=== PATIENT | male | born 1985 | race Caucasian/White ===

== ENCOUNTER → 2018-10-12 | Outpatient (CLI) | payer OTHER ==
--- NOTE | 2018-10-12 12:57 | RADIOLOGY REPORT (SQ) ---
EXAM DESCRIPTION: MRI RT LOWER JOINT WITHOUT COMPLETED DATE/TIME: 10/12/2018 8:07 am REASON FOR STUDY: PAIN IN RIGHT ANKLE (M25.571) M25.571 PAIN IN RIGHT ANKLE AND JOINTS OF RIGHT FO OT COMPARISON: None. TECHNIQUE: Right ankle images acquired and stored on PACS. Multiplanar images include fat sensitive sequences as T1, fluid sensitive sequences as FST2/STIR, cartilage sensitive sequences as FSPD, and g radient echo sequences. LIMITATIONS: None. FINDINGS: BONE MARROW: No alteration of signal to suggest marrow replacement or edema. No occult fra cture. No large osteophytes. EFFUSIONS: No subtalar or tibiotalar effusions. No loose bodies. OSSEOUS ARTICULATIONS: Normal tibiotalar, subtalar, talonavicular and calcaneocuboid joints. TALAR DOME AND TIBIAL PLAFOND: Normal cartilage. No osteochondral defect. ACHILLES TENDON: Intact without partial or full-thickness tear. No adjacent bursal fluid or edema. TIBIALIS ANTERIOR TENDON: Intact without edema at the 1st MT attachment. TIBIALIS POSTERIOR TENDON: Normal morphology and no edema at the navicular attachment. No tendon nichole th fluid. FLEXOR HALLUCIS LONGUS AND FLEXOR DIGITORUM TENDONS: Normal morphology and no tendon sheath fluid. No edema of the os trigonum. PERONEUS LONGUS AND BREVIS TENDON: Normal morphology and no tendon sheath fluid. No subluxation. ATFL, CFL, PTFL: Intact. No thickening or signal alteration. No aravind-ligamentous fluid. DELTOID LIGAMENT: Visualized components intact. TARSAL TUNNEL: No masses. No muscle atrophy. SINUS TARSI: No fluid. No reactive marrow edema or erosions. PLANTAR FASCIA: No signal alteration or tear. ADJACENT SOFT TISSUES: No masses. OTHER: No other significant finding. IMPRESSION: No significant findings. TECHNICAL DOCUMENTATION: JOB ID: [id number] [place]-72 2010 [employer]- All Rights Reserved Reading location - IP/workstation name: [email or web address]
== END ==
LOC: RAD 07:17
PROVIDERS: ATTEND Physician Assistant
DX: M25.571 Pain in right ankle and joints of right foot (principal)

== ENCOUNTER 2019-01-17 14:29 | Emergency (ER) | payer OTHER ==
--- NOTE | 2019-01-17 14:55 | ER Document Report ---
ED Medical Screen (RME) - General Stated Complaint: LOW LEFT ABDOMINAL/GROIN PAIN Time Seen by Provider: 01/17/19 14:49 Primary Care Provider: HARPREET STRONG PA [Primary Care Provider] - Follow up as needed Mode of Arrival: Ambulatory Information source: Patient Notes: 33-year-old male with history of inguinal hernia repair a few years ago presents with complaints to the left inguinal area. He reports he lifted a heavy suitcase the other day other day and has been having pain since that time. Offered Motrin and he declined. Denies pain with void. Denies fever vomiting diarrhea. I have greeted and performed a rapid initial assessment of this patient. A comprehensive ED assessment and evaluation of the patient, analysis of test results and completion of the medical decision making process will be conducted by additional ED providers. Dictation of this chart was performed using voice recognition software; therefore, there may be some unintended grammatical errors. TRAVEL OUTSIDE OF THE [place] IN LAST 30 DAYS: No Physical Exam - Vital signs Vitals: Temp Pulse Resp BP Pulse Ox 98.5 F 69 16 132/85 H 96 01/17/19 14:43 01/17/19 14:43 01/17/19 14:43 01/17/19 14:43 01/17/19 14:43 Course - Vital Signs Vital signs: Temp Pulse Resp BP Pulse Ox 98.5 F 69 16 132/85 H 96 01/17/19 14:43 01/17/19 14:43 01/17/19 14:43 01/17/19 14:43 01/17/19 14:43 Doctor's Discharge - Discharge Referrals: HARPREET STRONG PA [Primary Care Provider] - Follow up as needed
[2019-01-17 15:23] LABS: ABSOLUTE BASOPHILS # (AUTO) 0.1 10^3/uL (0.0-0.2); ABSOLUTE EOSINOPHILS # (AUTO) 0.1 10^3/uL (0.0-0.6); ABSOLUTE LYMPHOCYTES (AUTO) 2.3 10^3/uL (0.5-4.7); ABSOLUTE MONOCYTES (AUTO) 0.9 10^3/uL (0.1-1.4); ABSOLUTE NEUT (AUTO) 5.1 10^3/uL (1.7-8.2); BASOPHILS % (AUTO) 0.8 % (0-2); EOSINOPHILS % (AUTO) 1.3 % (0-6); HEMATOCRIT 41.9 % (37.9-51.0); HEMOGLOBIN 14.9 g/dL (13.5-17.0); LYMPHOCYTES % (AUTO) 27.2 % (13-45); MEAN CORPUSCULAR HEMOGLOBIN 30.4 pg (27.0-33.4); MEAN CORPUSCULAR HGB CONC 35.5 g/dL (32.0-36.0); MEAN CORPUSCULAR VOLUME 86 fl (80-97); MONOCYTES % (AUTO) 10.4 % (3-13); PLATELET COUNT 288 10^3/uL (150-450); RED BLOOD COUNT 4.89 10^6/uL (4.35-5.55); RED CELL DISTRIBUTION WIDTH 12.6 % (11.5-14.0); SEGMENTED NEUTROPHILS % (AUTO) 60.3 % (42-78); TOTAL CELLS COUNTED % (AUTO) 100 %; WHITE BLOOD COUNT 8.5 10^3/uL (4.0-10.5)
--- NOTE | 2019-01-17 15:45 | ER Document Report ---
ED General - General Chief Complaint: Groin Pain Stated Complaint: LOW LEFT ABDOMINAL/GROIN PAIN Time Seen by Provider: 01/17/19 14:49 Primary Care Provider: HARPREET STRONG PA [NO LOCAL MD] - Follow up as needed Mode of Arrival: Ambulatory TRAVEL OUTSIDE OF THE [place] IN LAST 30 DAYS: Yes COUNTRY TRAVELED TO/FROM: [facility] - [facility] Notes: Patient is a 33-year-old male with a history of left inguinal hernia repair 5 years ago who presents complaining of left inguinal pain x1 week after he was trying to put a suitcase in a car. He has not noticed any bulging or redness/swelling in the area. Patient states that pain is relatively constant and does not radiate. He is able to eat and drink without difficulty. He is urinating normally and having normal bowel movements. Denies drug allergies. Patient does not want any medicines or pain at this time. He is not aware of what type of surgery took place if it involves mesh or any patch. Denies any headache, fever, neck pain, URI, sore throat, chest pain, palpitations, syncope, cough, shortness of breath, wheeze, dyspnea, abdominal pain, nausea/vomiting/diarrhea, urinary retention, dysuria, hematuria, back pain, loss of control of bowel or bladder, numbness/tingling, saddle anesthesia, muscle paralysis/weakness, or rash. - Related Data Allergies/Adverse Reactions: No Known Allergies Allergy (Verified 01/17/19 14:58) Past Medical History - General Information source: Patient - Social History Smoking Status: Never Smoker Chew tobacco use (# tins/day): No Frequency of alcohol use: None Drug Abuse: None Family History: Reviewed & Not Pertinent Patient has suicidal ideation: No Patient has homicidal ideation: No Past Surgical History: Reports: Hx Abdominal Surgery - inguinal hernia Review of Systems - Review of Systems -: Yes All other systems reviewed and negative Physical Exam - Vital signs Vitals: Temp Pulse Resp BP Pulse Ox 98.5 F 69 16 132/85 H 96 01/17/19 14:43 01/17/19 14:43 01/17/19 14:43 01/17/19 14:43 01/17/19 14:43 - Notes Notes: PHYSICAL EXAMINATION: GENERAL: Well-appearing, well-nourished and in no acute distress. HEAD: Atraumatic, normocephalic. EYES: Pupils equal round and reactive to light, extraocular movements intact, sclera anicteric, conjunctiva are normal. ENT: EAC clear b/l. TM's intact b/l without erythema, fluid, or perforation. Nares patent and without discharge. oropharynx clear without exudates. No tonsilar hypertrophy or erythema. Moist mucous membranes. No sinus tenderness. NECK: Normal range of motion, supple without lymphadenopathy LUNGS: Breath sounds clear to auscultation bilaterally and equal. No wheezes rales or rhonchi. HEART: Regular rate and rhythm without murmurs, rubs, gallops. ABDOMEN: Soft, nontender, nondistended abdomen. No guarding, no rebound. Normal bowel sounds present. No CVA tenderness bilaterally. : + circumcised. No erythema, rash, lesion, ulceration, necrosis, swelling noted. No urethral discharge. No obvious lymphadenopathy or hernia noted to palpation. Nontender to palpation of the testicles, scrotum, penis. No transverse lie. Primus nerves intact bilaterally. Musculoskeletal: FROM to passive/active. Strength 5+/5. Extremities: No cyanosis, clubbing, or edema b/l. Peripheral pulses 2+. Capillary refill less than 3 seconds. NEUROLOGICAL: Normal speech, normal gait. PSYCH: Normal mood, normal affect. SKIN: Warm, Dry, normal turgor, no rashes or lesions noted. Course - Re-evaluation Re-evalutation: 01/17/19 17:42 Patient is an afebrile, well-hydrated, 33-year-old male who presents with left inguinal pain, unspecified. Vitals are acceptable without significant tachycardia, tachypnea, or hypoxia. PE is otherwise unremarkable. Patient's abdomen is soft nontender. He does have mild tenderness to the left inguinal area without obvious lymphadenopathy or hernia. Urine labs are unremarkable. Ultrasound was also unremarkable to this area. Patient is otherwise nontoxic- appearing and is tolerating p.o. without difficulty. No further work-up warranted. Low suspicion/risk for acute appendicitis, bowel obstruction, acute cholecystitis, perforated diverticulitis, incarcerated hernia, pancreatitis, perforated ulcer, peritonitis, sepsis, testicular torsion, or other systemic emergent condition at this time. Patient is aware that his condition can change from initial presentation and he needs to monitor symptoms closely and seek medical attention if any acute changes. Conservative measures otherwise for symptoms. Recheck with PCM in 2-3 days. Schedule consult with a Urologist. Return to the ED with any worsening/concerning symptoms otherwise as reviewed in discharge. Patient is in agreement. - Vital Signs Vital signs: Temp Pulse Resp BP Pulse Ox 98.5 F 69 16 132/85 H 96 01/17/19 14:43 01/17/19 14:43 01/17/19 14:43 01/17/19 14:43 01/17/19 14:43 - Laboratory Result Diagrams: 01/17/19 15:00 01/17/19 15:00 Laboratory results interpreted by me: 01/17/19 15:00 Glucose 64 L Discharge - Discharge Clinical Impression: Left inguinal pain Condition: Stable Disposition: HOME, SELF-CARE Instructions: Inguinal Strain ([facility]) Additional Instructions: Rest, Ice, Compression Tylenol/ibuprofen as needed Light stretches daily Strength exercises as able Moist heat and massage may help F/u with your PCP in 2-3 days for a recheck Consider consult/schedule appointment with urology/Orthopedics for evaluation. Return to the ED with any worsening symptoms and/or development of fever, headache, chest pain, palpitations, syncope, shortness of breath, trouble breathing, abdominal pain, n/v/d, muscle weakness/paralysis, numbness/tingling, swelling, redness, or other worsening symptoms that are concerning to you. Prescriptions: Ibuprofen [Motrin 800 mg Tablet] 800 mg PO Q8H PRN #15 tab PRN Reason: Forms: Elevated Blood Pressure Referrals: HARPREET STRONG PA [NO LOCAL MD] - Follow up as needed [facility] [Provider Group] - Follow up as needed
--- NOTE | 2019-01-17 15:59 | RADIOLOGY REPORT (SQ) ---
EXAM DESCRIPTION: U/S SCROTUM W/DOPPLER COMPLETED DATE/TIME: 01/17/2019 3:37 pm REASON FOR STUDY: left inguinal pain questionable hernia COMPARISON: None. TECHNIQUE: Static and realtime ruggiero scale imaging of the scrotum and testes. Selected color Doppler and spectral images recorded to document blood flow. LIMITATIONS: None. FINDINGS: RIGHT: TESTICLE: The right testicle measures 3.9 x 3 x 2.2 cm. The echotexture of the testicle is normal. There is no testicular mass and on Doppler there is intact arterial inflow and venous outflow within the testicular stroma. EPIDIDYMIS: The epididymis measures 8 x 8 x 12 mm. There is a cystic structure in the at the epididy mis that measures approximately 2.5 mm. On Doppler there is no evidence of hypervascularity. HYDROCELE OR VARICOCELE: No. HERNIA OR EXTRA-TESTICULAR MASS: No. OTHER: No other finding. LEFT: TESTICLE: The left testicle measures 3.7 x 2.3 x 1.6 cm. The echotexture of the testicle is normal. There is no testicular mass and on Doppler there is intact arterial inflow and venous outflow within the testicular stroma. EPIDIDYMIS: The epididymis measures 6 x 7 x 6 mm. On Doppler there is no evidence of hypervascularit y. HYDROCELE OR VARICOCELE: No. HERNIA OR EXTRA-TESTICULAR MASS: No. OTHER: No hernia sac. IMPRESSION: 1. No testicular mass or evidence of testicular torsion. 2. No epididymitis. 3. No hydrocele or varicocele. 4. No hernia sac in the left inguinal region. TECHNICAL DOCUMENTATION: JOB ID: [id number] [employer]- All Rights Reserved Reading location - IP/workstation name: [email or web address]
[2019-01-17 16:49] LABS: ALBUMIN 4.6 g/dL (3.5-5.0); ALKALINE PHOSPHATASE 58 U/L (38-126); ANION GAP 11 (5-19); ASPARTATE AMINO TRANSFERASE 23 U/L (17-59); BILIRUBIN,DIRECT 0.2 mg/dL (0.0-0.4); BILIRUBIN,TOTAL 0.6 mg/dL (0.2-1.3); BLOOD UREA NITROGEN 15 mg/dL (7-20); CALCIUM 9.9 mg/dL (8.4-10.2); CARBON DIOXIDE 27 mmol/L (22-30); CHLORIDE 104 mmol/L (98-107); POTASSIUM 4.4 mmol/L (3.6-5.0); TOTAL PROTEIN 7.7 g/dL (6.3-8.2)
[2019-01-17 16:53] LABS: GLUCOSE 64 mg/dL (75-110)
[2019-01-17 17:14] LABS: APPEARANCE,URINE CLEAR; BILIRUBIN,URINE NEGATIVE (NEGATIVE); COLOR,URINE YELLOW; GLUCOSE, URINE NEGATIVE (NEGATIVE); KETONES,URINE NEGATIVE (NEGATIVE); LEUKOCYTE ESTERASE,URINE NEGATIVE (NEGATIVE); NITRITE,URINE NEGATIVE (NEGATIVE); PROTEIN,URINE NEGATIVE (NEGATIVE); URINE SPECIFIC GRAVITY 1.008; UROBILINOGEN,URINE NEGATIVE mg/dL (<2.0)
[2019-01-17 17:59] VITALS: BP 135/72
== END 2019-01-17 17:59 | disposition home or self-care (01) ==
LOC: ER 14:29
DX: R10.30 Lower abdominal pain, unspecified (principal)
CPT/HCPCS: 36415; 76870; 80053; 81001; 85025; 93976; 99284

== ENCOUNTER 2019-02-02 16:09 | Emergency (ER) | payer OTHER ==
--- NOTE | 2019-02-02 16:43 | ER Document Report ---
ED Medical Screen (RME) - General Chief Complaint: Neck Problem Stated Complaint: NECK PAIN Time Seen by Provider: 02/02/19 16:19 Notes: Patient is a 33-year-old male who presents to the emergency department with a chief complaint of left lateral neck pain. Patient reports this is been recurrent and intermittent for a few years. 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 Patient denies fever, injury, runny nose, ear pain or headache. Patient reports nothing specific happens to make this neck pain occur but he just feels a pressure underneath his left jaw. Patient denies difficulty breathing or swallowing. TRAVEL OUTSIDE OF THE [place] IN LAST 30 DAYS: Yes COUNTRY TRAVELED TO/FROM: [facility] - Related Data Allergies/Adverse Reactions: No Known Allergies Allergy (Verified 02/02/19 16:24) Past Medical History - Social History Chew tobacco use (# tins/day): No Frequency of alcohol use: None Drug Abuse: None Past Surgical History: Reports: Hx Abdominal Surgery - inguinal hernia Physical Exam - Vital signs Vitals: Temp Pulse Resp BP Pulse Ox 97.9 F 76 16 122/76 98 02/02/19 16:12 02/02/19 16:12 02/02/19 16:12 02/02/19 16:12 02/02/19 16:12 Course - Re-evaluation Re-evalutation: 02/02/19 16:42 I did discuss the patient's symptoms with Dr. Whelan who recommended obtaining a CBC, CMP, TSH and ultrasound of the thyroid and soft tissue the neck. I have greeted and performed a rapid initial assessment of this patient. A comprehensive ED assessment and evaluation of the patient, analysis of test results and completion of the medical decision making process will be conducted by additional ED providers. - Vital Signs Vital signs: Temp Pulse Resp BP Pulse Ox 97.9 F 76 16 122/76 98 02/02/19 16:12 02/02/19 16:12 02/02/19 16:12 02/02/19 16:12 02/02/19 16:12
[2019-02-02 17:13] LABS: ABSOLUTE EOSINOPHILS # (AUTO) 0.1 10^3/uL (0.0-0.6); ABSOLUTE LYMPHOCYTES (AUTO) 1.9 10^3/uL (0.5-4.7); ABSOLUTE MONOCYTES (AUTO) 0.7 10^3/uL (0.1-1.4); ABSOLUTE NEUT (AUTO) 4.8 10^3/uL (1.7-8.2); BASOPHILS % (AUTO) 0.6 % (0-2); EOSINOPHILS % (AUTO) 1.4 % (0-6); HEMATOCRIT 42.4 % (37.9-51.0); HEMOGLOBIN 15.1 g/dL (13.5-17.0); LYMPHOCYTES % (AUTO) 24.9 % (13-45); MEAN CORPUSCULAR HEMOGLOBIN 30.6 pg (27.0-33.4); MEAN CORPUSCULAR HGB CONC 35.7 g/dL (32.0-36.0); MEAN CORPUSCULAR VOLUME 86 fl (80-97); MONOCYTES % (AUTO) 9.3 % (3-13); PLATELET COUNT 268 10^3/uL (150-450); RED BLOOD COUNT 4.95 10^6/uL (4.35-5.55); RED CELL DISTRIBUTION WIDTH 12.6 % (11.5-14.0); SEGMENTED NEUTROPHILS % (AUTO) 63.8 % (42-78); TOTAL CELLS COUNTED % (AUTO) 100 %; WHITE BLOOD COUNT 7.6 10^3/uL (4.0-10.5)
[2019-02-02 17:36] LABS: ALBUMIN 4.4 g/dL (3.5-5.0); ALKALINE PHOSPHATASE 60 U/L (38-126); ANION GAP 11 (5-19); ASPARTATE AMINO TRANSFERASE 20 U/L (17-59); BILIRUBIN,DIRECT 0.1 mg/dL (0.0-0.4); BILIRUBIN,TOTAL 0.5 mg/dL (0.2-1.3); BLOOD UREA NITROGEN 14 mg/dL (7-20); CALCIUM 9.4 mg/dL (8.4-10.2); CARBON DIOXIDE 28 mmol/L (22-30); CHLORIDE 106 mmol/L (98-107); GLUCOSE 103 mg/dL (75-110); POTASSIUM 4.4 mmol/L (3.6-5.0); TOTAL PROTEIN 7.3 g/dL (6.3-8.2)
--- NOTE | 2019-02-02 18:28 | RADIOLOGY REPORT (SQ) ---
EXAM DESCRIPTION: U/S THYROID/SFT TISS HD NECK COMPLETED DATE/TIME: 02/02/2019 5:45 pm REASON FOR STUDY: left neck pressure, enlarged lymph node left COMPARISON: None. TECHNIQUE: Dynamic and static ruggiero-scale images acquired of the thyroid gland. Selected additional c olor/power Doppler images recorded. All images stored to PACS. LIMITATIONS: None. FINDINGS: RIGHT LOBE: Normal size, 4.8 cm. Homogeneous echotexture. No cystic or solid masses. LEFT LOBE: Normal size, 4.3 cm. Homogeneous echotexture. No cystic or solid masses. ISTHMUS: Normal size, 3 mm. Homogeneous echotexture. No cystic or solid masses. OTHER: There is a lymph node adjacent to the parotid gland on the left that measures 18 x 9 x 5 mm. There is a fatty hilum. IMPRESSION: Normal thyroid gland. Left-sided lymph node with a benign appearance. TECHNICAL DOCUMENTATION: JOB ID: [id number] [employer]- All Rights Reserved Reading location - IP/workstation name: [email or web address]
--- NOTE | 2019-02-02 19:32 | ER Document Report ---
HPI - HPI Time Seen by Provider: 02/02/19 16:19 Pain Level: 2 Context: Patient is a 33-year-old male who presents to the emergency department with a chief complaint of left lateral neck pain. Patient reports this is been recurrent and intermittent for a few years. 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 Patient denies fever, injury, runny nose, ear pain or headache. Patient reports nothing specific happens to make this neck pain occur but he just feels a pressure underneath his left jaw. Patient denies difficulty breathing or swallowing. - REPRODUCTIVE Reproductive: DENIES: : Past Medical History - General Information source: Patient - Social History Smoking Status: Never Smoker Chew tobacco use (# tins/day): No Frequency of alcohol use: None Drug Abuse: None Lives with: Family Family History: Reviewed & Not Pertinent Patient has suicidal ideation: No Patient has homicidal ideation: No - Past Medical History Cardiac Medical History: Reports: None Pulmonary Medical History: Reports: None EENT Medical History: Reports: None Neurological Medical History: Reports: None Endocrine Medical History: Reports: None Renal/ Medical History: Reports: None Malignancy Medical History: Reports None GI Medical History: Reports: None Musculoskeletal Medical History: Reports None Skin Medical History: Reports None Psychiatric Medical History: Reports: None Traumatic Medical History: Reports: None Infectious Medical History: Reports: None Past Surgical History: Reports: Hx Abdominal Surgery - inguinal hernia Vertical Provider Document - CONSTITUTIONAL Agree With Documented VS: Yes Exam Limitations: No Limitations General Appearance: No Apparent Distress - INFECTION CONTROL TRAVEL OUTSIDE OF THE [place] IN LAST 30 DAYS: Yes COUNTRY TRAVELED TO/FROM: [facility] - HEENT HEENT: Atraumatic, Normal ENT Exam, Normocephalic, PERRLA - NECK Neck: Normal Inspection Notes: Patient does have a slightly enlarged submandibular palpable lymph node. No surrounding erythema. No difficulty swallowing. - RESPIRATORY Respiratory: Breath Sounds Normal, No Respiratory Distress - CARDIOVASCULAR Cardiovascular: Regular Rate, Regular Rhythm - GI/ABDOMEN Gastrointestinal: Abdomen Soft, Abdomen Non-Tender, Normal Bowel Sounds - MUSCULOSKELETAL/EXTREMETIES Musculoskeletal/Extremeties: FROM - NEURO Level of Consciousness: Awake, Alert, Appropriate - DERM Integumentary: Warm, Dry, No Rash Course - Vital Signs Vital signs: Temp Pulse Resp BP Pulse Ox 97.9 F 76 16 122/76 98 02/02/19 16:12 02/02/19 16:12 02/02/19 16:12 02/02/19 16:12 02/02/19 16:12 - Laboratory Result Diagrams: 02/02/19 16:56 02/02/19 16:56 Laboratory results interpreted by me: 02/02/19 19:30 Laboratory 02/02/19 02/02/19 02/02/19 16:56 16:56 16:56 WBC 7.6 RBC 4.95 Hgb 15.1 Hct 42.4 MCV 86 MCH 30.6 MCHC 35.7 RDW 12.6 Plt Count 268 Lymph % (Auto) 24.9 [place] % (Auto) 9.3 Eos % (Auto) 1.4 Baso % (Auto) 0.6 Absolute Neuts (auto) 4.8 Absolute Lymphs (auto) 1.9 Absolute Monos (auto) 0.7 Absolute Eos (auto) 0.1 Absolute Basos (auto) 0.0 Seg Neutrophils % 63.8 Sodium 144.5 Potassium 4.4 Chloride 106 Carbon Dioxide 28 Anion Gap 11 BUN 14 Creatinine 0.85 Est GFR ( Amer) > 60 Est GFR (MDRD) Non-Af > 60 Glucose 103 Calcium 9.4 Total Bilirubin 0.5 Direct Bilirubin 0.1 Neonat Total Bilirubin Not Reportable Neonat Direct Bilirubin Not Reportable Neonat Indirect Bili Not Reportable AST 20 ALT 14 Alkaline Phosphatase 60 Total Protein 7.3 Albumin 4.4 TSH 1.17 - Diagnostic Test Radiology reviewed: Reports reviewed Radiology results interpreted by me: 02/02/19 19:28 Thyroid Ultrasound 02/02/19 16:38 IMPRESSION: Normal thyroid gland. Left-sided lymph node with a benign appearance. Discharge - Discharge Clinical Impression: Enlarged lymph node in neck Condition: Stable Disposition: HOME, SELF-CARE Additional Instructions: Today you are seen in the emergency department for pressure of the left neck. Your laboratory findings do not reveal an infection, alteration in your electrolytes or kidney function, or alteration in your thyroid function. We did obtain an ultrasound of your neck which showed a normal thyroid and a slightly enlarged lymph node on the left. There are many different reasons for an enlarged lymph node. If you continue to have this enlarged lymph node I would get this checked out by a physician as you may require a biopsy or further testing. Please monitor for signs of worsening to include difficulty breathing, difficulty swallowing, fever or any new or worsening symptoms. Lymphadenopathy You have enlargement of lymph glands, called lymphadenopathy. Lymph glands filter tissue fluids. They help to fight infection. Most of the time, enlarged lymph glands are not serious. Lymph glands may react to a viral or bacterial infection by becoming swollen and painful. When the infection goes away, the glands shrink. Sometimes a lymph gland will remain enlarged for a long time after an infection. Occasionally, a lymph gland may be overwhelmed by infection and form an abscess. If an enlarged lymph gland has signs that are suspicious for tumor, the doctor will recommend a biopsy. A suspicious gland usually is NOT painful, grows very slowly, and is rock-hard to touch. See the doctor or return if there is increasing swelling and redness, high fever, difficulty breathing, or any other change for the worse.
[2019-02-02 20:04] VITALS: BP 141/91
== END 2019-02-02 20:04 | disposition home or self-care (01) ==
LOC: ER 16:09
DX: R59.0 Localized enlarged lymph nodes (principal); M54.2 Cervicalgia
CPT/HCPCS: 36415; 76536; 80053; 84443; 85025